=== PATIENT | female | born 1980 | race Caucasian/White ===

== ENCOUNTER 2017-05-11 08:27 | Emergency (ER) | payer BC, OTHER ==
[~2017-05-11] VITALS: Ht 162.6 cm; Wt 74.8 kg
[~2017-05-11 08:27] MED LIST: IUD; [UNRECOGNIZED DRUG - REMARK]
--- NOTE | 2017-05-11 09:00 | NUR ---
PATIENT TO ED C/O ABDOMINAL PAIN, 5/10, NON RADIATING X LAST NIGHT. NAUSEA TODAY, DENIES VOMITTING, SKIN IS WARM TO TOUCH AND NON DIPAHORETIC. AFEBRILE. VSS
[2017-05-11] MEDS ORDERED: KETOROLAC TROMETHAMINE INJ 30 MG/ML VIAL IV ONE (09:30)
[2017-05-11] MEDS ORDERED: IV NS 0.9% 1,000 ML BAG IV ONE (09:30)
--- NOTE | 2017-05-11 09:39 | NUR ---
URINE SAMPLE SENT TO LAB
[2017-05-11 10:02] LABS: EOSINOPHILS # (AUTO) 0.1 /CMM (0.0-0.7); EOSINOPHILS % (AUTO) 0.7 % (0.0-6.0); HEMATOCRIT 42 % (33-45); HEMOGLOBIN 13.8 g/dL (11.5-14.8); LYMPHOCYTES # (AUTO) 1.5 /CMM (0.8-4.8); LYMPHOCYTES % (AUTO) 8.8 % (20.0-44.0); MEAN CORPUSCULAR HEMOGLOBIN 29 PG (26.0-33.0); MEAN CORPUSCULAR HGB CONC 33 g/dl (31.0-36.0); MEAN CORPUSCULAR VOLUME 87 fL (82-100); MONOCYTES # (AUTO) 0.6 /CMM (0.1-1.30); MONOCYTES % (AUTO) 3.8 % (2.0-12.0); NEUTROPHILS # (AUTO) 14.8 /CMM (1.8-8.9); NEUTROPHILS % (AUTO) 86.7 % (43.0-81.0); PLATELET COUNT (AUTO) 334 /CMM (150-450); RDW COEFFICIENT OF VARIATION 12.2 (11.5-15.0)
[2017-05-11 10:13] LABS: CALCIUM, SERUM 8.8 mg/dL (8.5-10.1); CREATININE 0.9 mg/dL (0.6-1.3)
[2017-05-11] MEDS ORDERED: KETOROLAC TROMETHAMINE 15 MG/ML VIAL ONE (10:14)
[2017-05-11 10:18] LABS: ALBUMIN 3.8 g/dL (3.4-5.0); BILIRUBIN,DIRECT 0.1 mg/dL (0.0-0.2); BILIRUBIN,TOTAL 0.5 mg/dL (0.2-1.0); TOTAL PROTEIN, SERUM 7.7 g/dL (6.4-8.2)
[2017-05-11] MEDS ORDERED: CEFTRIAXONE 1GM BAG (ER ONLY) 50 ML IV ONE ×2 (10:29→10:30)
[2017-05-11 11:59] VITALS: BP 130/68
[2017-05-11 12:06] LABS: APPEARANCE,URINE Slightly Cloudy (CLEAR); BILIRUBIN,URINE Negative (NEGATIVE); BLOOD, URINE Small Ery/uL (NEGATIVE); COLOR,URINE Yellow (YELLOW); KETONES,URINE Negative (NEGATIVE); LEUKOCYTE ESTERASE ,URINE Large (NEGATIVE); NITRITE, URINE Negative (NEGATIVE); PH,URINE 7.5 (5.0-8.0); PROTEIN,URINE Negative (NEGATIVE); UGLUCOSE Negative (NEGATIVE); UROBILINOGEN,URINE 0.2 EU/dL (0.2)
[2017-05-11 12:10] LABS: BACTERIA,URINE Few /HPF (None Seen); SQUAMOUS EPITHELIAL CELL,UR Few /HPF (None Seen)
== END 2017-05-11 12:01 | disposition home or self-care (01) ==
LOC: ER 08:28
DX: N12 Tubulo-interstitial nephritis, not specified as acute or chronic (principal)
CPT/HCPCS: 36415; 80048; 80076; 81001; 83690; 84703; 85025; 87086; 96361; 96365; 96372; 99284; A4606; J0696; J1885; Z7610; 81000-TC

== ENCOUNTER 2017-08-28 04:23 | Emergency (ER) | payer OTHER ==
[~2017-08-28] VITALS: Ht 160 cm; Wt 108.9 kg
--- NOTE | 2017-08-28 05:15 | NUR ---
AMBULATED TO ASSESS FOR VISUAL ACUITY. STATES "I MAKE ORDONEZ A HOBBY BUT TODAY AT 0100 I WAS MAKING THEM THE MILK SUP FELL INTO MY LEFT EYE. I WASHED OT SEVERAL TIMES AND WHEN I LOOKED IT UP ON [employer] IT STATED MY EYE WOULD SWELL UP AFTER 10 HOURS BECAUSE IT CONTAINS POISON". DENIES ANY OTHER C/O AT THIS TIME. APPEARS ANXIOUS. NON DIAPHORETIC. RESP EVEN AND UNLABORED. PLAN OF CARE DISCUSSED AND AWAITS MD MAURICIO.
[2017-08-28] MEDS ORDERED: TETRACAINE HCL/PF 0.5% UD 2 ML BOTTLE ONE (05:40)
--- NOTE | 2017-08-28 05:40 | NUR ---
VERBAL ORDER FOR TETRACAINE AND NS FOR GIN LENS IRRIGATION BY DR. MARTINEZ.
--- NOTE | 2017-08-28 06:20 | NUR ---
PT REQUESTED TO HOLD IRRIGATION FOR A BREAK.
[2017-08-28 06:29] VITALS: BP 128/76
[2017-08-28] MEDS ORDERED: TETRACAINE HCL/PF 0.5% UD 2 ML BOTTLE LEFTEYE ONE (06:30)
--- NOTE | 2017-08-28 06:30 | NUR ---
IRRIGATION RESTARTED REQUESTED. NO ACUTE DISTRESS NOTED.
--- NOTE | 2017-08-28 06:39 | NUR ---
ALL FLUIDS INFUSED AT THIS TIME VIA GIN LENS. STATES "I FEEL A LOT BETTER". DENIES ANY SX'S. Patient discharged to home in stable condition. Written and verbal after care instructions given. Patient verbalizes understanding of instruction. Ambulatory with a steady gait
== END 2017-08-28 06:41 | disposition home or self-care (01) ==
LOC: ER 04:24
DX: H10.9 Unspecified conjunctivitis (principal); F41.9 Anxiety disorder, unspecified
CPT/HCPCS: A4606; J7030; Z7610

== ENCOUNTER 2021-07-10 15:39 | Emergency (ER) | payer BC, OTHER ==
[~2021-07-10] VITALS: Ht 157.5 cm; Wt 106.6 kg
--- NOTE | 2021-07-10 16:10 | NUR ---
[id number] FROM HOME AOX4, C/O LOWER ABDOMINAL PRESSURE, UNABLE TO URINATE OR PASS STOOL FOR 1 DAY. PT CHANGED INTO GOWN AND IS AWAITING MD MAURICIO
--- NOTE | 2021-07-10 16:54 | NUR ---
XRAY AT BEDSIDE
--- NOTE | 2021-07-10 17:15 | NUR ---
PT AMBULATED TO BATHROOM, REPORTED PASSING STOOL BUT STILL C/O PRESSURE. MADE AWARE
--- NOTE | 2021-07-10 17:48 | NUR ---
chambers catheter inserted per sterile protocal. Immediate output 300ML of urine, yellow in color, clear.
--- NOTE | 2021-07-10 18:21 | NUR ---
MD AT BEDSIDE FOR PELVIC EXAM
[2021-07-10 19:14] VITALS: BP 135/92
--- NOTE | 2021-07-10 19:14 | NUR ---
chambers cath removed
--- NOTE | 2021-07-10 19:14 | NUR ---
Patient discharged to home in stable condition. Written and verbal after care instructions given. Patient verbalizes understanding of instruction.
== END 2021-07-10 19:15 | disposition home or self-care (01) ==
LOC: ER 15:50
DX: R33.9 Retention of urine, unspecified (principal); F41.9 Anxiety disorder, unspecified; Z98.890 Other specified postprocedural states
CPT/HCPCS: 74021; 76856-TC

== ENCOUNTER 2024-02-29 03:39 | Emergency (ER) | payer OTHER ==
[~2024-02-29] VITALS: Ht 160 cm; Wt 108.0 kg
[2024-02-29] MEDS ORDERED: IBUPROFEN 600 MG TABLET ONE (04:19)
[2024-02-29] MEDS: IBUPROFEN 600 MG TABLET PO ONE (04:26)
[2024-02-29 04:43] LABS: BASOPHILS % (AUTO) 0.5 % (0.0-2.0); EOSINOPHILS # (AUTO) 0.1 K/uL (0.0-0.7); EOSINOPHILS % (AUTO) 1.8 % (0.0-6.0); HEMATOCRIT 39 % (33-45); HEMOGLOBIN 13.3 g/dL (11.5-14.8); LYMPHOCYTES # (AUTO) 2.1 K/uL (0.8-4.8); LYMPHOCYTES % (AUTO) 27.2 % (20.0-44.0); MEAN CORPUSCULAR HEMOGLOBIN 30 PG (26.0-33.0); MEAN CORPUSCULAR HGB CONC 34 g/dl (31.0-36.0); MEAN CORPUSCULAR VOLUME 88 fL (82-100); MONOCYTES # (AUTO) 0.6 K/uL (0.1-1.30); MONOCYTES % (AUTO) 7.8 % (2.0-12.0); NEUTROPHILS # (AUTO) 4.8 K/uL (1.8-8.9); NEUTROPHILS % (AUTO) 62.7 % (43.0-81.0); PLATELET COUNT (AUTO) 362 K/uL (150-450); RED BLOOD CELL COUNT(AUTO) 4.46 MIL/uL (4.0-5.2); WHITE BLOOD COUNT (AUTO) 7.7 K/uL (4.3-11.0)
[2024-02-29 04:56] LABS: CALCIUM, SERUM 8.7 mg/dL (8.5-10.1); CARBON DIOXIDE 25 mmol/L (21-32); CHLORIDE 107 mmol/L (98-107); CREATININE 0.7 mg/dL (0.6-1.3); GLUCOSE 118 mg/dL (74-106); POTASSIUM 3.5 mmol/L (3.5-5.1); SODIUM SERUM 137 mmol/L (136-145); UREA NITROGEN, BLOOD 9 mg/dL (7-18)
[2024-02-29] MEDS ORDERED: CYCL10TA9 PO (06:08)
[2024-02-29 06:14] VITALS: BP 131/85; TEMP 98; O2SAT 99
== END 2024-02-29 06:15 | disposition home or self-care (01) ==
LOC: ER 03:39
DX: R52 Pain, unspecified (principal); F41.9 Anxiety disorder, unspecified; Z98.890 Other specified postprocedural states
CPT/HCPCS: 36415; 71045-TC; 80048-TC; 84484-TC; 85025-TC